=== PATIENT | female | born 1985 | race Two or more races ===

== ENCOUNTER 2021-08-26 11:06 | Outpatient (CLI) | payer OTHER | END 2021-08-26 23:59 | disposition home or self-care (01) | LOC: LAB 11:06 | PROVIDERS: ATTEND Specialist | DX: Z01.812 Encounter for preprocedural laboratory examination (principal); Z20.822 Contact with and (suspected) exposure to COVID-19 | CPT/HCPCS: C9803; U0003 ==

== ENCOUNTER 2021-09-02 05:07 | Inpatient (IN) | payer OTHER ==
[2021-09-02] VITALS (9 sets, daily range): BP systolic 97–109; BP diastolic 59–71
[~2021-09-02] VITALS: Ht 154.9 cm; Wt 56.2 kg
[2021-09-02] MEDS: CEFAZOLIN 1 GM in IV D5W 50 ML IV SCH ×3 (06:00→12:44)
[2021-09-02] MEDS ORDERED: MIDAZOLAM HCL 2 MG/2ML VIAL ONE (06:26)
[2021-09-02] MEDS ORDERED: FENTANYL PF 250MCG/5ML AMPUL ONE (06:26)
[2021-09-02] MEDS ORDERED: FAMOTIDINE/PF INJ 20 MG/2 ML VIAL IV ONE (06:27)
[2021-09-02] MEDS ORDERED: ANESTHESIA TRAY IN PYXIS 1 EA TRAY MC ONE (06:47)
[2021-09-02] MEDS ORDERED: BUPIVACAINE 0.5 % PF 150 MG/30 ML VIAL ONE (06:48)
== END 2021-09-02 15:00 | disposition home or self-care (01) | DRG 489 ==
LOC: DS 05:07 → MED 05:10
PROVIDERS: ADMIT Specialist; ATTEND Specialist
PROC: 0SBD4ZZ Excision of Left Knee Joint, Percutaneous Endoscopic Approach (ICD-10-PCS; principal; 2021-09-02)
PROC: 0SBD4ZZ Excision of Left Knee Joint, Percutaneous Endoscopic Approach (ICD-10-PCS; 2021-09-02)
PROC: 0SCD4ZZ Extirpation of Matter from Left Knee Joint, Percutaneous Endoscopic Approach (ICD-10-PCS; 2021-09-02)
DX: S83.242A Other tear of medial meniscus, current injury, left knee, initial encounter (principal); S83.282A Other tear of lateral meniscus, current injury, left knee, initial encounter; X58.XXXA Exposure to other specified factors, initial encounter; Y92.89 Other specified places as the place of occurrence of the external cause; M22.42 Chondromalacia patellae, left knee; M23.42 Loose body in knee, left knee; F17.200 Nicotine dependence, unspecified, uncomplicated; Z90.49 Acquired absence of other specified parts of digestive tract
CPT/HCPCS: 84703-TC; 97116-TC; 97530-TC; A4217; G0378; J0690; J2250; J2405; J2704; J2765; J3010; J3490; J7030; J7060